=== PATIENT | female | born 1980 | race Caucasian/White ===

== ENCOUNTER 2017-12-12 09:56 | Emergency (ER) | payer OTHER ==
[~2017-12-12] VITALS: Ht 154.9 cm; Wt 106.1 kg
[~2017-12-12 09:56] MED LIST: INTESTINEX1 CAP PO; KETO10TA2 PO; ORPH100T PO; PERCOCET 5/3251 TAB PO; ZANTAC150 MG PO
== END 2017-12-12 11:45 | disposition home or self-care (01) ==
LOC: ER 09:56
DX: N63.10 Unspecified lump in the right breast, unspecified quadrant (principal)

== ENCOUNTER 2020-05-26 09:52 | Emergency (ER) | payer OTHER ==
[~2020-05-26] VITALS: Ht 154.9 cm; Wt 111.6 kg
[2020-05-26] MEDS ORDERED: SYNTHROID88 MCG (10:01)
[2020-05-26] MEDS ORDERED: SKELAXIN800 MG PO (13:50)
[2020-05-26] MEDS ORDERED: ULTRAM50 MG PO (13:50)
== END 2020-05-26 14:12 ==
LOC: ER 09:52
DX: S13.8XXA Sprain of joints and ligaments of other parts of neck, initial encounter (principal); V49.88XA Car occupant (driver) (passenger) injured in other specified transport accidents, initial encounter; Y93.89 Activity, other specified; Y92.488 Other paved roadways as the place of occurrence of the external cause; Y99.8 Other external cause status